=== PATIENT | female | born 1990 | race African-American/Black ===

== ENCOUNTER 2021-11-24 03:11 | Emergency (ER) | payer SELFPAY ==
[~2021-11-24] VITALS: Ht 157.5 cm; Wt 120.2 kg
[2021-11-24] MEDS ORDERED: AZITHROMYCIN 250 MG TAB PO STA (03:34)
[2021-11-24] MEDS ORDERED: DEXAMETHASONE SOD PHOS INJ 4 MG/ML SDV IV STA (03:34)
[2021-11-24] MEDS ORDERED: DEXAMETHASONE SOD PHOS INJ 4 MG/ML SDV ONE (03:59)
[2021-11-24] MEDS ORDERED: AZITHROMYCIN 250 MG TAB ONE (04:02)
[2021-11-24] MEDS ORDERED: AZITHROMYCIN250 MG PO (04:04)
[2021-11-24] MEDS ORDERED: GUAIFEN-CODEINE5 ML PO (04:04)
[2021-11-24] MEDS ORDERED: PREDNISONE20 MG PO (04:04)
[2021-11-24] MEDS ORDERED: VENTOLIN HFA18 GM INH (04:04)
[2021-11-24 04:13] VITALS: BP 171/104
== END 2021-11-24 04:13 | disposition home or self-care (01) ==
LOC: FSED 03:32
DX: R05.9 Cough, unspecified (principal); J06.9 Acute upper respiratory infection, unspecified; I10 Essential (primary) hypertension; J45.909 Unspecified asthma, uncomplicated
CPT/HCPCS: 83518; 87400; 96372; 99283; J1100